=== PATIENT | male | born 1960 | race Caucasian/White ===

== ENCOUNTER 2021-03-23 09:21 | Emergency (ER) | payer OTHER ==
[2021-03-23] MEDS ORDERED: CEFAZOLIN 1 GM VIAL ONE (09:52)
[2021-03-23] MEDS ORDERED: Boostrix 0.5 ML (Tdap) VIAL ONE (09:52)
[2021-03-23] MEDS ORDERED: Morphine 4 MG/ML VIAL ONE (10:21)
[2021-03-23] MEDS ORDERED: Ondansetron PF 4 MG/2 ML Vial ONE (10:21)
[2021-03-23 10:22] LABS: #Basophils 0.1 10x3/uL (0.0-0.2); #Eosinphils 0.3 10x3/uL (0.0-0.5); #Monocytes 0.8 10x3/uL (0.0-1.1); #Neutrophils 3.7 10x3/uL (1.5-8.4); %Basophils 1.1 % (0.0-2.0); %Eosinophils 4.6 % (0.0-6.0); %Lymphocytes 30.2 % (18.0-47.0); %Monocytes 11.8 % (0.0-10.0); %Neutrophils 51.6 % (40.0-75.0); Hemoglobin 12.4 g/dL (13.5-17.5); Mean Corpuscular HGB CONC 32.4 g/dL (32.0-36.0); Mean Corpuscular Hemoglobin 30.1 pg (27.0-33.0); Mean Platelet Volume 9.4 fl (7.4-10.4); Platelet Count 298 10x3/uL (150-450); Red Blood Cell (RBC) Count 4.12 10x6/uL (4.32-5.72); White Blood Cell (WBC) Count 7.1 10x3/uL (3.5-10.5)
[2021-03-23 10:38] LABS: ALT (SGPT) 40 U/L (8-55); AST (SGOT) 31 U/L (5-34); Albumin 3.7 g/dL (3.4-4.8); Alkaline Phosphatase 111 U/L (40-110); Anion Gap 12 mmol/L (10-20); BUN (Urea Nitrogen) 12 mg/dL (8.4-25.7); Bilirubin, Total 0.9 mg/dL (0.2-1.2); Calc. Creatinine Clearance 0 mL/min (70-130); Calcium 9.4 mg/dL (7.8-10.44); Carbon Dioxide 21 mmol/L (23-31); Chloride 109 mmol/L (98-107); Globulin 2.7 g/dL (2.4-3.5); Glucose 99 mg/dL (80-115); Potassium 4.1 mmol/L (3.5-5.1); Protein, Total 6.4 g/dL (5.8-8.1); Sodium 138 mmol/L (136-145)
[2021-03-23] MEDS ORDERED: Lidocaine 1% w/Epinephrine 1:100K 20 ML VIAL ONE (11:09)
[2021-03-23] MEDS ORDERED: HYDROcodone/Acetaminophen 5/325 mg Tablet ONE (11:30)
== END 2021-03-23 13:00 | disposition home or self-care (01) ==
LOC: CSHERS 09:21
DX: S22.42XA Multiple fractures of ribs, left side, initial encounter for closed fracture (principal); S01.81XA Laceration without foreign body of other part of head, initial encounter; S51.012A Laceration without foreign body of left elbow, initial encounter; S80.212A Abrasion, left knee, initial encounter; S80.211A Abrasion, right knee, initial encounter; V29.69XA Unspecified motorcycle rider injured in collision with other motor vehicles in traffic accident, initial encounter; Z23 Encounter for immunization
CPT/HCPCS: 12002; 12013; 36415; 70450; 71045; 71260; 74177; 80053; 85025; 90471; 90715; 93005; 96365; 96375; G0390; J0690; J2270; J2405

== ENCOUNTER 2021-05-17 16:12 | Outpatient (CLI) | payer OTHER ==
[2021-05-17 17:12] LABS: Hemoglobin 13.5 g/dL (13.5-17.5); Mean Corpuscular HGB CONC 32.7 g/dL (32.0-36.0); Mean Corpuscular Hemoglobin 30.1 pg (27.0-33.0); Mean Platelet Volume 9.5 fl (7.4-10.4); Platelet Count 313 10x3/uL (150-450); RBC Distribution Width 13.3 % (11.5-14.5); Red Blood Cell (RBC) Count 4.49 10x6/uL (4.32-5.72); White Blood Cell (WBC) Count 18.6 10x3/uL (3.5-10.5)
[2021-05-17 17:17] LABS: Anion Gap 13 mmol/L (10-20); BUN (Urea Nitrogen) 12 mg/dL (8.4-25.7); Calc. Creatinine Clearance 0 mL/min (70-130); Calcium 8.6 mg/dL (7.8-10.44); Carbon Dioxide 23 mmol/L (23-31); Chloride 106 mmol/L (98-107); Glucose 111 mg/dL (80-115); Sodium 138 mmol/L (136-145)
[2021-05-18 01:01] LABS: SARS-CoV-2 PCR by NAA Not Detected (NotDetected)
== END 2021-05-17 16:13 | disposition home or self-care (01) ==
LOC: CSHLAB 16:12
PROVIDERS: ATTEND Surgery Surgery of the Hand
DX: Z01.818 Encounter for other preprocedural examination (principal); Z20.822 Contact with and (suspected) exposure to COVID-19
CPT/HCPCS: 80048; 85027; 93005; 93010; U0003; U0005

== ENCOUNTER 2021-05-20 10:58 | Day surgery (SDC) | payer OTHER ==
[2021-05-18 15:56] VITALS: BMI 25.5
[2021-05-20] MEDS ORDERED: Lidocaine 1% MPF 2 ML VIAL ONE (11:23)
[2021-05-20] MEDS ORDERED: Lidocaine 1% PF 5 ML VIAL ONE (12:39)
[2021-05-20] MEDS ORDERED: Dexamethasone 20 MG/5 ML VIAL ONE (12:39)
[2021-05-20] MEDS ORDERED: Ondansetron PF 4 MG/2 ML Vial ONE (12:39)
[2021-05-20] MEDS ORDERED: Fentanyl 100 MCG/2 ML VIAL ONE (12:39)
[2021-05-20] MEDS ORDERED: PROPOFOL 20 ML ONE (12:39)
[2021-05-20] MEDS ORDERED: Sodium Bicarbonate 2.5 MEQ/5 ML VIAL ONE (12:40)
[2021-05-20] MEDS ORDERED: Bupivacaine 0.25% HCL 30 ML VIAL ONE ×2 (12:40→13:31)
[2021-05-20] MEDS ORDERED: Lidocaine 1% w/Epinephrine 1:100K 30 ML VIAL ONE (12:44)
[2021-05-20] MEDS ORDERED: ceFAZolin 2 GM/DEX 5% 100 ML BAG ONE (12:54)
[2021-05-20] MEDS ORDERED: PHENYLEPHRINE-NS 100 MCG/ML 10 ML SYRINGE ONE (14:00)
[2021-05-20] MEDS ORDERED: Ketorolac Tromethamine 30 MG/ML VIAL ONE (15:08)
[2021-05-20] MEDS ORDERED: HYDROcodone/Acetaminophen 10/325 mg Tablet ONE (15:22)
== END 2021-05-20 15:40 | disposition home or self-care (01) ==
LOC: CSHSDC 10:58
PROVIDERS: ATTEND Surgery Surgery of the Hand
DX: M18.12 Unilateral primary osteoarthritis of first carpometacarpal joint, left hand (principal); K21.9 Gastro-esophageal reflux disease without esophagitis; F32.9 Major depressive disorder, single episode, unspecified; F41.9 Anxiety disorder, unspecified
CPT/HCPCS: 88304; 88311; C1713; J1100; J1885; J2405; J2704; J3010; S0020

== ENCOUNTER 2021-09-20 14:34 | Outpatient (CLI) | payer OTHER | END 2021-09-20 14:35 | disposition home or self-care (01) | LOC: CSHMRI 14:34 | PROVIDERS: ATTEND Urology | DX: C61 Malignant neoplasm of prostate (principal) | CPT/HCPCS: 72197; 82565 ==

== ENCOUNTER 2022-01-09 07:30 | Outpatient (CLI) | payer OTHER | END 2022-01-09 07:31 | disposition home or self-care (01) | LOC: CSHLAB 07:30 | PROVIDERS: ATTEND Urology | DX: Z20.822 Contact with and (suspected) exposure to COVID-19 (principal) | CPT/HCPCS: U0003; U0005 ==

== ENCOUNTER 2022-01-11 05:52 | Day surgery (SDC) | payer OTHER ==
[2022-01-09 15:30] VITALS: BMI 25.7
[2022-01-11] MEDS ORDERED: Lidocaine 1% MPF 2 ML VIAL ONE (06:41)
[2022-01-11] MEDS ORDERED: PROPOFOL 40 ML ONE (07:12)
[2022-01-11] MEDS ORDERED: Lidocaine 2% MPF 10 ML AMP (For Epidural Use) ONE (07:12)
[2022-01-11] MEDS ORDERED: Midazolam HCl 2 mg/2 ml Vial ONE (07:17)
[2022-01-11] MEDS ORDERED: HYDROmorphone 0.5 MG/0.5 ML SYRINGE ONE (07:28)
== END 2022-01-11 10:20 | disposition home or self-care (01) ==
LOC: CSHSDC 05:52
PROVIDERS: ATTEND Internal Medicine Gastroenterology
PROC: 0DB48ZX Excision of Esophagogastric Junction, Via Natural or Artificial Opening Endoscopic, Diagnostic (ICD-10-PCS; principal; 2022-01-11)
DX: K22.70 Barrett's esophagus without dysplasia (principal); R13.10 Dysphagia, unspecified; K21.9 Gastro-esophageal reflux disease without esophagitis; E78.5 Hyperlipidemia, unspecified; J30.9 Allergic rhinitis, unspecified; M19.90 Unspecified osteoarthritis, unspecified site; Z85.46 Personal history of malignant neoplasm of prostate; Z79.899 Other long term (current) drug therapy; Z98.84 Bariatric surgery status
CPT/HCPCS: 88305; 88312; 88313; J1170; J2250; J2704

== ENCOUNTER 2022-03-01 16:06 | Inpatient (IN) | payer OTHER ==
[~2022-03-01 16:06] MED LIST: Iopamidol 300 61% 100 ML VIAL FS ONE
[2022-03-01 17:10] LABS: #Eosinphils 0.3 10x3/uL (0.0-0.5); #Monocytes 1.4 10x3/uL (0.0-1.1); #Neutrophils 11.7 10x3/uL (1.5-8.4); %Basophils 0.3 % (0.0-2.0); %Eosinophils 1.9 % (0.0-6.0); %Lymphocytes 12.4 % (18.0-47.0); %Monocytes 9.2 % (0.0-10.0); %Neutrophils 75.9 % (40.0-75.0); Hemoglobin 17.1 g/dL (13.5-17.5); Mean Corpuscular HGB CONC 33.8 g/dL (32.0-36.0); Mean Corpuscular Hemoglobin 30.9 pg (27.0-33.0); Mean Corpuscular Volume 91.3 fl (81.2-95.1); Mean Platelet Volume 9.5 fl (7.4-10.4); Platelet Count 382 10x3/uL (150-450); RBC Distribution Width 12.9 % (11.5-14.5); Red Blood Cell (RBC) Count 5.54 10x6/uL (4.32-5.72); White Blood Cell (WBC) Count 15.4 10x3/uL (3.5-10.5)
[2022-03-01 17:15] LABS: ALT (SGPT) 62 U/L (8-55); AST (SGOT) 39 U/L (5-34); Alkaline Phosphatase 135 U/L (40-110); Anion Gap 18 mmol/L (10-20); BUN (Urea Nitrogen) 12 mg/dL (8.4-25.7); Calc. Creatinine Clearance 0 mL/min (70-130); Calcium 11.1 mg/dL (7.8-10.44); Carbon Dioxide 23 mmol/L (23-31); Chloride 99 mmol/L (98-107); Estimated GFR 57; Globulin 3.5 g/dL (2.4-3.5); Glucose 168 mg/dL (80-115); Lipase 46 U/L (8-78); Potassium 5.2 mmol/L (3.5-5.1); Protein, Total 8.5 g/dL (5.8-8.1); Sodium 135 mmol/L (136-145)
[2022-03-01] MEDS ORDERED: Morphine 4 MG/ML VIAL ONE (17:25)
[2022-03-01] MEDS ORDERED: Ondansetron PF 4 MG/2 ML Vial ONE ×2 (17:33→19:27)
[2022-03-01] MEDS ORDERED: Ondansetron PF 4 MG/2 ML Vial IVP PRN (20:21)
[2022-03-01] MEDS ORDERED: Morphine 2 MG/ML VIAL SLOW IVP PRN (20:23)
[2022-03-01] MEDS: Morphine 4 MG/ML VIAL SLOW IVP PRN (20:48)
[2022-03-01] MEDS: Sodium Chloride 0.9% 1,000 ML IV SCH (20:48)
[2022-03-01] MEDS: Piperacillin/Tazobactam 3.375 GM in Sodium Chloride 0.9% 100 ML IVPB SCH (20:54)
[2022-03-01] MEDS ORDERED: Tamsulosin HCl 0.4 MG CAP PO SCH (21:00)
[2022-03-01] MEDS ORDERED: Piperacillin/Tazobactam 3.375 GM in Sodium Chloride 0.9% 100 ML IVPB SCH (21:00)
[2022-03-01] MEDS: Pantoprazole 40 MG VIAL IVP SCH (21:13)
[2022-03-01] MEDS ORDERED: Pantoprazole 40 MG VIAL ONE (21:14)
[2022-03-01 21:44] LABS: CK (CPK) 286 U/L (30-200); Magnesium 1.9 mg/dL (1.6-2.6)
[2022-03-01 22:49] VITALS: BMI 25.7
[2022-03-02 00:12] LABS: Bilirubin Neg (Negative); Blood, Urine Negative (Negative); Clarity Clear (Clear); Glucose, Urine (Dipstick) Normal (Negative); Ketone, Urine Negative (Negative); Leukocyte Negative (Negative); Nitrite Negative (Negative); Protein, Urine (Dipstick) 15 mg/dl (Neg-Trace); Urobilinogen Normal mg/dL (Less than 2)
[2022-03-02 00:26] LABS: Bacteria/HPF Rare-Few HPF (None Seen); RBC/HPF 0-3 HPF (0-3); Squamous Epithelial 0-3 HPF (0-3); WBC/HPF 0-3 HPF (0-3)
[2022-03-02 04:52] LABS: #Basophils 0.1 10x3/uL (0.0-0.2); #Eosinphils 0.4 10x3/uL (0.0-0.5); #Monocytes 1.5 10x3/uL (0.0-1.1); #Neutrophils 6.3 10x3/uL (1.5-8.4); %Basophils 0.7 % (0.0-2.0); %Eosinophils 4.2 % (0.0-6.0); %Lymphocytes 18.3 % (18.0-47.0); %Monocytes 14.8 % (0.0-10.0); %Neutrophils 61.8 % (40.0-75.0); Hemoglobin 12.8 g/dL (13.5-17.5); Mean Corpuscular Hemoglobin 30.8 pg (27.0-33.0); Mean Corpuscular Volume 90.8 fl (81.2-95.1); Mean Platelet Volume 9.6 fl (7.4-10.4); Platelet Count 317 10x3/uL (150-450); Red Blood Cell (RBC) Count 4.15 10x6/uL (4.32-5.72); White Blood Cell (WBC) Count 10.1 10x3/uL (3.5-10.5)
[2022-03-02 04:57] LABS: ALT (SGPT) 62 U/L (8-55); AST (SGOT) 66 U/L (5-34); Albumin 3.4 g/dL (3.4-4.8); Alkaline Phosphatase 108 U/L (40-110); Anion Gap 12 mmol/L (10-20); BUN (Urea Nitrogen) 17 mg/dL (8.4-25.7); Bilirubin, Total 1.2 mg/dL (0.2-1.2); Calc. Creatinine Clearance 72 mL/min (70-130); Calcium 8.5 mg/dL (7.8-10.44); Carbon Dioxide 21 mmol/L (23-31); Chloride 110 mmol/L (98-107); Estimated GFR 64; Globulin 2.5 g/dL (2.4-3.5); Glucose 107 mg/dL (80-115); Magnesium 1.9 mg/dL (1.6-2.6); Potassium 4.6 mmol/L (3.5-5.1); Protein, Total 5.9 g/dL (5.8-8.1); Sodium 138 mmol/L (136-145)
[2022-03-02] MEDS: Morphine 4 MG/ML VIAL SLOW IVP PRN ×2 (05:52→16:57)
[2022-03-02] MEDS: Sodium Chloride 0.9% 1,000 ML IV SCH ×2 (05:52→10:11)
[2022-03-02 08:59] LABS: SARS-CoV-2 NAA Rapid Test Not Detected (NotDetected)
[2022-03-02] MEDS ORDERED: Enoxaparin Sodium 40 MG/0.4 ML SYRINGE SC SCH (09:00)
[2022-03-02] MEDS: Piperacillin/Tazobactam 3.375 GM in Sodium Chloride 0.9% 100 ML IVPB SCH ×2 (10:19→16:57)
[2022-03-02] MEDS: Pantoprazole 40 MG VIAL IVP SCH (10:23)
[2022-03-02 12:43] LABS: Hemoglobin A1c 5.1 % (4.0-6.0)
[2022-03-02 17:03] VITALS: BP 104/71; TEMP 97.7
== END 2022-03-02 18:51 | disposition home or self-care (01) | DRG 389 ==
LOC: CSHERS 16:06 → CSHTELE 20:27
PROVIDERS: ADMIT Student in an Organized Health Care Education/Training Program; ATTEND Nurse Practitioner Family
DX: K56.50 Intestinal adhesions [bands], unspecified as to partial versus complete obstruction (principal); N17.9 Acute kidney failure, unspecified; R65.10 Systemic inflammatory response syndrome (SIRS) of non-infectious origin without acute organ dysfunction; E87.5 Hyperkalemia; E83.52 Hypercalcemia; G89.4 Chronic pain syndrome; Z20.822 Contact with and (suspected) exposure to COVID-19; R91.1 Solitary pulmonary nodule; Z90.49 Acquired absence of other specified parts of digestive tract; Z90.81 Acquired absence of spleen; Z79.899 Other long term (current) drug therapy
CPT/HCPCS: 36415; 71045; 74177; 80053; 81001; 83036; 83605; 83690; 83735; 84484; 85025; 93005; C9113; J1650; J2270; J2405; J2543; J3490; J7050; Q9967; U0002